=== PATIENT | female | born 2000 | race African-American/Black ===

== ENCOUNTER 2022-11-11 04:52 | Day surgery (SDC) | payer OTHER ==
[2022-11-10 10:37] VITALS: BMI 21.9
[2022-11-11 11:53] VITALS: BP 108/70; PULSE 78; RESP 18
[2022-11-11 15:33] VITALS: TEMP 97.3
== END 2022-11-11 12:20 | disposition home or self-care (01) ==
LOC: JASU-ENDO 04:52
PROVIDERS: ATTEND Student in an Organized Health Care Education/Training Program
PROC: 0DBE8ZX Excision of Large Intestine, Via Natural or Artificial Opening Endoscopic, Diagnostic (ICD-10-PCS; 2022-11-11)
PROC: 0DBP8ZX Excision of Rectum, Via Natural or Artificial Opening Endoscopic, Diagnostic (ICD-10-PCS; 2022-11-11)
PROC: 0DBB8ZX Excision of Ileum, Via Natural or Artificial Opening Endoscopic, Diagnostic (ICD-10-PCS; 2022-11-11)
PROC: 0DBK8ZX Excision of Ascending Colon, Via Natural or Artificial Opening Endoscopic, Diagnostic (ICD-10-PCS; principal; 2022-11-11 10:30)
DX: K62.6 Ulcer of anus and rectum (principal); K52.9 Noninfective gastroenteritis and colitis, unspecified; K62.89 Other specified diseases of anus and rectum
CPT/HCPCS: 81025; 88305-TC

== ENCOUNTER 2023-08-14 19:48 | Emergency (ER) | payer OTHER ==
[2023-08-14 19:54] VITALS: BP 101/68; PULSE 93; RESP 20; TEMP 99.1; BMI 20.5
[2023-08-14] MEDS ORDERED: ACETAMINOPHEN 1000 MG/100 ML BAG IVPB ONE (20:27)
[2023-08-14] MEDS ORDERED: ACETAMINOPHEN INJECTION 100 ML IVPB ONE (20:36)
[2023-08-14] MEDS ORDERED: LACTATED RINGERS SOLUTION 1000 ML INFUS.BAG IV ONE (21:00)
[2023-08-14 21:07] LABS: BASO % 0.6 % (0-2.0); EOS % 3.4 % (0-4.5); HEMATOCRIT 32.5 % (32.4-45.2); HEMOGLOBIN 10.6 GM/dL (10.7-15.3); LYMPH % 21.8 % (8-40); MCH 23.9 pg (25.7-33.7); MCHC 32.5 g/dl (32.0-36.0); MEAN CELL VOLUME 73.8 fl (80-96); MEAN PLT VOLUME 8.4 fl (7.5-11.1); MONO % 13.2 % (3.8-10.2); PLATELET COUNT 490 10^3/uL (134-434); RBC 4.41 M/mm3 (3.60-5.2); RDW 18.8 % (11.6-15.6); WHITE BLOOD COUNT 9.9 K/mm3 (4.0-10.0)
[2023-08-14 21:21] LABS: CALCIUM 9.2 mg/dL (8.5-10.1)
[2023-08-14 21:22] LABS: ALBUMIN 3.6 g/dl (3.4-5.0); BLOOD UREA NITROGEN 14.8 mg/dL (7-18)
[2023-08-14 21:25] LABS: CREATININE 0.7 mg/dL (0.55-1.3)
[2023-08-14 21:26] LABS: BILIRUBIN,TOTAL 0.2 mg/dL (0.2-1); TOT PROT 7.9 g/dl (6.4-8.2)
== END 2023-08-15 00:42 | disposition home or self-care (01) ==
LOC: JER 19:48
PROC: 3E033NZ Introduction of Analgesics, Hypnotics, Sedatives into Peripheral Vein, Percutaneous Approach (ICD-10-PCS; principal; 2023-08-14)
DX: R10.32 Left lower quadrant pain (principal); K62.5 Hemorrhage of anus and rectum; R19.7 Diarrhea, unspecified; R11.0 Nausea
CPT/HCPCS: 36415; 74177-TC; 80053; 82272; 84703; 85025; 86850; 86900; 86901; 99285-25; Q9967